=== PATIENT | female | born 1985 | race Caucasian/White ===

== ENCOUNTER → 2017-10-13 | Outpatient (CLI) | payer BC ==
[2015-12-06 11:41] VITALS: BP 125/82
[~2017-10-13] MED LIST: LISINOPRIL20 MG PO; PROAIR RESPICL90 MCG IH; SYMBICORT1 AE3 IH; ZITHROMAX 250M250 MG PO
== END ==
LOC: RAD 11:46
DX: M79.671 Pain in right foot (principal); M25.571 Pain in right ankle and joints of right foot

== ENCOUNTER → 2020-08-06 | Outpatient (CLI) | payer BC ==
[2020-08-06 08:05] LABS: BASO # 0.03 (0.02-0.10); EOS # 0.13 (0.04-0.40); EOS % 1.5 % (1.0-5.0); HEMATOCRIT 42.8 % (37.0-47.0); HEMOGLOBIN 14.4 g/dL (12.5-16.0); LYMPH# 2.61 (1.50-4.00); MEAN CELL VOLUME 84 fl (78-100); MEAN CORPUSCULAR HEMOGLOBIN 28 pg (27-31); MEAN CORPUSCULAR HGB CONC 34 g/dL (33-37); MEAN PLATELET VOLUME 11.1 fl (7.4-10.4); MONO # 0.45 (0.20-0.80); NEU # 5.35 (1.40-6.50); PLATELET COUNT 253 K/mm3 (130-400); RED BLOOD COUNT 5.11 M/mm3 (4.10-5.30); RED CELL DISTRIBUTION WIDTH 12.9 % (11.5-14.5); WHITE BLOOD COUNT 8.6 K/mm3 (4.8-10.8)
[2020-08-06 08:28] LABS: POTASSIUM 3.9 mmol/L (3.5-5.1)
[2020-08-06 08:29] LABS: CALCIUM 9.2 mg/dL (8.3-10.5)
[2020-08-06 08:30] LABS: TOTAL PROTEIN 8.2 g/dL (6.4-8.3)
[2020-08-06 08:32] LABS: TOTAL BILIRUBIN 0.6 mg/dL (0.2-1.2)
== END ==
LOC: LAB 07:47
PROVIDERS: Nurse Practitioner Family
DX: Z00.00 Encounter for general adult medical examination without abnormal findings (principal); I10 Essential (primary) hypertension